=== PATIENT | male | born 2000 | race Two or more races ===

== ENCOUNTER 2020-03-04 23:13 | Emergency (ER) | payer OTHER ==
[~2020-03-04] VITALS: Ht 157.5 cm; Wt 49.9 kg
[2020-03-05] MEDS ORDERED: PEPCID40 MG PO (07:16)
[2020-03-05] MEDS ORDERED: ZOFRAN8 MG PO ×2 (07:16)
== END 2020-03-05 07:28 | disposition home or self-care (01) ==
LOC: ER 23:13
DX: K29.70 Gastritis, unspecified, without bleeding (principal)